=== PATIENT | female | born 1985 | race Caucasian/White ===

== ENCOUNTER 2025-06-03 10:16 | Day surgery (SDC) | payer OTHER, SELFPAY ==
[2025-06-03] MEDS ORDERED: Acetaminophen 500 MG TAB ONE (10:38)
[2025-06-03] MEDS: Acetaminophen 500 MG TAB PO SCH (10:40)
[2025-06-03] MEDS: Ferumoxytol (NON ERSD) 510 MG in 0.9 % Sodium Chloride 150 ML IVPB SCH (11:10)
[2025-06-10] MEDS ORDERED: Acetaminophen 500 MG TAB ONE (10:48)
[2025-06-10] MEDS: Acetaminophen 500 MG TAB PO SCH (10:49)
[2025-06-10 11:18] VITALS: TEMP 98.4
[2025-06-10] MEDS: Ferumoxytol (NON ERSD) 510 MG in 0.9 % Sodium Chloride 150 ML IVPB SCH (11:18)
[2025-06-10 15:42] VITALS: BP 126/67
== END 2025-06-10 15:57 | disposition home or self-care (01) ==
LOC: ONC/OP 10:16
PROVIDERS: ATTEND Student in an Organized Health Care Education/Training Program
DX: O99.019 Anemia complicating pregnancy, unspecified trimester (principal); Z3A.00 Weeks of gestation of pregnancy not specified
CPT/HCPCS: 96365; 96366; Q0138